=== PATIENT | male | born 1955 | race Caucasian/White ===

== ENCOUNTER 2021-12-04 04:14 | Day surgery (SDC) | payer OTHER ==
[2021-11-30 13:29] VITALS: BMI 27.4
[2021-12-04] MEDS ORDERED: ACETAMINOPHEN 500 MG TABLET (FP) PO PRN (09:23)
[2021-12-04] MEDS ORDERED: oxyCODONE HCL 5 MG TABLET PO PRN ×2 (09:23)
[2021-12-04] MEDS ORDERED: ONDANSETRON 4 MG/2 ML VIAL IVPUSH PRN (09:23)
[2021-12-04] MEDS ORDERED: LACTATED RINGERS SOLUTION 1,000 ML IV SCH (09:30)
[2021-12-04 11:27] VITALS: TEMP 98
[2021-12-04 13:26] VITALS: BP 126/50; PULSE 60
== END 2021-12-04 12:55 | disposition home or self-care (01) ==
LOC: JASU-SURG 04:14
PROVIDERS: ATTEND Urology
PROC: 0TF4XZZ Fragmentation in Left Kidney Pelvis, External Approach (ICD-10-PCS; principal; 2021-12-04 09:00)
DX: N20.0 Calculus of kidney (principal)